=== PATIENT | female | born 1995 | race Hispanic/Latino ===

== ENCOUNTER 2018-02-02 17:50 | Emergency (ER) | payer BC ==
[2018-02-02 18:12] VITALS: BP 121/71; PULSE 63; RESP 18; TEMP 97.5; O2SAT 99
--- NOTE | 2018-02-02 18:45 | RAD ---
Date of service: 02/02/2018 HISTORY: cough COMPARISON: No prior. TECHNIQUE: Chest PA and lateral FINDINGS: LUNGS: No active pulmonary disease. PLEURA: No significant pleural effusion identified. No pneumothorax apparent. CARDIOVASCULAR: No aortic atherosclerotic calcification present. Normal cardiac size. No pulmonary vascular congestion. OSSEOUS STRUCTURES: No significant abnormalities. VISUALIZED UPPER ABDOMEN: Normal. OTHER FINDINGS: None. IMPRESSION: No active disease.
--- NOTE | 2018-02-02 19:27 | ED PDOC ---
HPI: CCC, URI, Sore Throat Time Seen by Provider: 02/02/18 18:07 Chief Complaint (Nursing): ENT Problem Chief Complaint (Provider): ENT problem History Per: Patient History/Exam Limitations: no limitations Onset/Duration Of Symptoms: Days (1x week) Current Symptoms Are (Timing): Still Present Location Of Pain: Throat Associated Symptoms: Fever (tmax 101, since resolved), Cough, Sputum (green). denies: Nasal Congestion Ear Symptoms: Bilateral: None Severity: Moderate Additional Complaint(s): 22 year old female with a past medical history of hypothyroidism presents to the ED for an evaluation of a cough that started 1x week ago. Patient reports that she has since lost her voice and developed a sore throat. Patient states that the cough worsens at night. Patient reports taking mucinex. Patient reports having a fever on the first day of onset of symptoms (tmax 101) which has since resolved. Patient denies taking tylenol or motrin. Patient denies having chest pain, shortness of breath, hemoptysis, rashes, and recent travel. PMD: None provided. Past Medical History Reviewed: Historical Data, Nursing Documentation, Vital Signs Vital Signs: Last Vital Signs Temp 97.5 F L 02/02/18 18:09 Pulse 63 02/02/18 18:09 Resp 18 02/02/18 18:09 BP 121/71 02/02/18 18:09 Pulse Ox 99 02/02/18 18:09 - Medical History PMH: Hypothyroidism - Surgical History Surgical History: No Surg Hx - Family History Family History: States: No Known Family Hx - Social History Alcohol: None Drugs: Denies - Home Medications Home Medications: Ambulatory Orders Medication Instructions Recorded Azithromycin [Zithromax] 250 mg PO DAILY #6 tab 02/02/18 Promethazine DM [Phenergan DM 5 - 10 ml PO Q8 PRN #120 ml 02/02/18 Syrup] - Allergies Allergies/Adverse Reactions: Allergies Allergy/AdvReac Type Severity Reaction Status Date / Time No Known Allergies Allergy Verified 02/02/18 18:08 Review of Systems ROS Statement: Except As Marked, All Systems Reviewed And Found Negative Constitutional: Positive for: Fever (tmax 101 7x days ago, has since resolved) Cardiovascular: Negative for: Chest Pain Respiratory: Positive for: Cough, Sputum (green). Negative for: Shortness of Breath, Hemoptysis Skin: Negative for: Rash Physical Exam - Reviewed Nursing Documentation Reviewed: Yes Vital Signs Reviewed: Yes - Physical Exam Appears: Positive for: Well, Non-toxic, No Acute Distress Head Exam: Positive for: ATRAUMATIC, NORMOCEPHALIC Skin: Positive for: Normal Color, Warm, Dry Eye Exam: Positive for: Normal appearance, EOMI, PERRL ENT: Positive for: Normal ENT Inspection, Other (hoarse voice noted, able to swallow saliva). Negative for: Pharyngeal Erythema, Tonsillar Swelling ((-) erythema) Cardiovascular/Chest: Positive for: Regular Rate, Rhythm, Chest Non Tender Respiratory: Positive for: Normal Breath Sounds. Negative for: Respiratory Distress Neurologic/Psych: Positive for: Alert, Oriented (3x) - ECG O2 Sat by Pulse Oximetry: 99 (RA) Pulse Ox Interpretation: Normal - Radiology X-Ray: Viewed By Me, Read By Radiologist X-Ray Interpretation: No Acute Disease (see MDM note) Medical Decision Making Medical Decision Makin:07 Initial impression: 22 year old female with a cough Initial plan: -XRay chest pa & lat - throat culture - rapid strep 18:41 XRay PA&LAT read and reviewed by radiologist FINDINGS: LUNGS: No active pulmonary disease. PLEURA: No significant pleural effusion identified. No pneumothorax apparent. CARDIOVASCULAR: No aortic atherosclerotic calcification present. Normal cardiac size. No pulmonary vascular congestion. OSSEOUS STRUCTURES: No significant abnormalities. VISUALIZED UPPER ABDOMEN: Normal. OTHER FINDINGS: None. IMPRESSION: No active disease. 19:27 Informed patient of results and pending throat culture. Encourage fluid hydratio n, humidification, warm salt water gargles, and throat rest. Advised patient to return if symptoms persist or worsen. Scribe Attestation: Documented by Rema Hobson, acting as a scribe for Juwan Arauz Provider Scribe Attestation: All medical record entries made by the Scribe were at my direction and personally dictated by me. I have reviewed the chart and agree that the record accurately reflects my personal performance of the history, physical exam, medical decision making, and the department course for this patient. I have also personally directed, reviewed, and agree with the discharge instructions and disposition. Disposition - Clinical Impression Clinical Impression: Laryngitis, URI (upper respiratory infection) - Patient ED Disposition Is Patient to be Admitted: No - Disposition Referrals: [facility] [Outside] Disposition: Routine/Home Disposition Time: 19:27 Condition: STABLE Additional Instructions: REST DRINK PLENTY OF FLUIDS FOLLOW UP WITH YOUR PRIMARY CARE DOCTOR RETURN TO ED IMMEDIATELY IF SYMPTOMS WORSEN ALIZA LEGGETT, thank you for letting us take care of you today. Your provider was Jesus Pendleton MD and you were treated for THROAT PAIN. The emergency medical care you received today was directed at your acute symptoms. If you were prescribed any medication, please fill it and take as directed. It may take several days for your symptoms to resolve. Return to the Emergency Department if your symptoms worsen, do not improve, or if you have any other problems. Please contact your doctor or call one of the physicians/clinics you have been referred to that are listed on the Patient Visit Information form that is included in your discharge packet. Bring any paperwork you were given at discharge with you along with any medications you are taking to your follow up visit. Our treatment cannot replace ongoing medical care by a primary care provider outside of the emergency department. [facility]. If you had an X-Ray or CT scan: A Radiologist will review the ED reading if any change in treatment is needed we will contact you. If you had a blood, urine, or wound culture: It will take several days for the results, if any change in treatment is needed we will contact you. If you had an STI test: It will take 48 hours for the results. Please call after 1 week if you have not heard back. Prescriptions: Azithromycin [Zithromax] 250 mg PO DAILY #6 tab RX: Promethazine DM [Phenergan DM Syrup] 5 - 10 ml PO Q8 PRN #120 ml PRN Reason: Cough Instructions: Viral Upper Respiratory Infection, Adult (DC), Laryngitis (DC) Forms: [employer] (Stateless), [facility] ED School/Work Excuse Print Language: UPPER SORBIAN
== END 2018-02-02 19:35 | disposition home or self-care (01) ==
LOC: H.ER 17:50
DX: J04.0 Acute laryngitis (principal); J06.9 Acute upper respiratory infection, unspecified